=== PATIENT | female | born 2000 | race Two or more races ===

== ENCOUNTER 2024-01-05 12:48 | Inpatient (IN) | payer SELFPAY ==
[~2024-01-05] VITALS: Ht 162.6 cm; Wt 75.7 kg
[2024-01-05 13:29] LABS: Basophils # (auto) 0 10 ^3/uL (0-0.2); Basophils % (auto) 0.3 % (0.0-2.0); Eosinophils # (auto) 0 10 ^3/uL (0-0.8); Eosinophils % (auto) 0.1 % (0.0-7.0); Hematocrit 43.4 % (36.0-46.0); Lymphocytes # (auto) 1.1 10 ^3/uL (0.4-5.4); Lymphocytes % (auto) 7.9 % (10.0-50.0); Mean Corpuscular Hemoglobin 30.9 pg (28.0-32.0); Mean Corpuscular Hgb Conc. 32.4 g/dL (32.0-36.0); Mean Corpuscular Volume 95.4 fL (80.0-100.0); Monocytes # (auto) 0.4 10 ^3/uL (0-1.3); Monocytes % (auto) 2.5 % (0.0-12.0); Neutrophils # (auto) 12.3 10 ^3/uL (1.6-8.6); Neutrophils % (auto) 89.2 % (37.0-80.0); Nucleated Red Blood Cells % 0.1 %; Red Blood Cells 4.54 10^6/uL (4.0-5.20); White Blood Cell 13.8 10^3/uL (4.4-10.8)
[2024-01-05 13:37] LABS: Chloride 105 mmol/L (98-107); Potassium 3.9 mmol/L (3.5-5.1); Sodium 140 mmol/L (136-145)
[2024-01-05 13:38] LABS: Anion Gap 10 (5-15); Carbon Dioxide 25 mmol/L (20-30)
[2024-01-05 13:39] LABS: Calcium 9.9 mg/dL (8.5-10.1)
[2024-01-05] MEDS: ATROPINE SULFATE 0.4 MG/1 ML VIAL IV ONE (13:40)
[2024-01-05] MEDS: SODIUM CHLORIDE 0.9% 2,050 ML IV ONE (13:40)
[2024-01-05] MEDS: ONDANSETRON HCL 4 MG/2 ML VIAL IV ONE ×2 (13:40→16:10)
[2024-01-05 13:43] LABS: Glucose 123 mg/dL (74-106)
[2024-01-05 13:44] LABS: BUN/Creatinine Ratio 8.5 (10.0-20.0); Blood Urea Nitrogen 6 mg/dL (9-23)
[2024-01-05 13:52] VITALS: PULSE 55; RESP 17; O2SAT 94
[2024-01-05 14:21] LABS: Base Excess -0.8 mmol/L (-2.0-2.0)
[2024-01-05 14:35] LABS: Urine Bacteria FEW /hpf (None Seen); Urine Blood 3+ /uL (Negative); Urine Clarity Clear (Clear); Urine Color Yellow (Yellow); Urine Protein, UAD TRACE (Negative); Urine Specific Gravity 1.027 (1.001-1.035); Urine Urobilinogen Normal (Negative); Urine WBC 6 /hpf (0 - 5)
[2024-01-05 14:42] LABS: Acetaminophen < 2.0 UG/ML (10.0-20.0)
[2024-01-05 14:49] LABS: Amphetamine Screen, Urine Neg (NEGATIVE); Barbiturate Scree,Urine Neg (NEGATIVE); Benzodiazephine Screen, Urine Neg (NEGATIVE); Cannabinoid Screen, Urine Pos (NEGATIVE); Cocaine Screen, Urine Neg (NEGATIVE); Opiate Scree,Urine Neg (NEGATIVE); Phencyclidine Screen, Urine Neg (NEGATIVE)
[2024-01-05 14:51] LABS: Salicylate < 3.0 mg/dL (2.8-20.0)
[2024-01-05] MEDS: KETOROLAC TROMETH 30 MG/ML 1ML VIAL IV ONE (16:10)
[2024-01-05] MEDS ORDERED: ALBUTEROL SULF 2.5 MG/0.5ML(0.5%) NEB SOLN NEB PRN (16:15)
[2024-01-05] MEDS ORDERED: MORPHINE SULFATE INJ 2 MG/ml SYRG IV PRN (16:15)
[2024-01-05] MEDS ORDERED: NITROGLYCERIN 0.4 MG SL TAB SL PRN (16:15)
[2024-01-05] MEDS ORDERED: IPRATROPIUM BROM 0.5 MG/2.5ML INH SOL NEB PRN (16:15)
[2024-01-05] MEDS: SODIUM CHLORIDE 0.9% 1,000 ML IV SCH (16:27)
[2024-01-05] MEDS: HYDROcodone-ACET 5/325MG TAB PO PRN (16:45)
[2024-01-05] MEDS: ATROPINE SULF 0.5 MG/5ML SYR IV ONE (17:20)
[2024-01-05] MEDS: MAGNESIUM SULFATE 1GM/100ML 100 ML IV ONE (19:05)
[2024-01-05] MEDS: ONDANSETRON HCL 4 MG/2 ML VIAL IV PRN (19:05)
[2024-01-05 19:09] LABS: Rapid Influenza A Negative (Negative); Rapid Influenza B Negative (Negative)
[2024-01-05 19:36] LABS: Erythrocyte Sedimentation Rate 8 mm/hr (0-20)
[2024-01-05 19:51] VITALS: PULSE 86; RESP 15; O2SAT 98
[2024-01-05] MEDS: MORPHINE SULFATE INJ 2 MG/ml SYRG IV PRN (21:15)
[2024-01-05 21:41] LABS: Hematocrit 39.7 % (36.0-46.0); Hemoglobin 13.1 g/dL (12.2-16.2)
[2024-01-05] MEDS: IBUPROFEN 600 MG TAB PO SCH (22:00)
[2024-01-05] MEDS: PANTOPRAZOLE 40 MG/10 ML VIAL INJ IV ONE (22:18)
[2024-01-05 22:35] VITALS: BP 132/70; PULSE 70; RESP 16; TEMP 98; O2SAT 70
[2024-01-05] MEDS: COLCHICINE 0.6 MG CAP PO ONE (23:37)
[2024-01-06] VITALS (8 sets, daily range): BP systolic 103–131; BP diastolic 59–99; PULSE 45–71; RESP 17–20; TEMP 36.9; O2SAT 98–100
[2024-01-06] MEDS: ATROPINE SULF 1 MG/10ml SYR IV ONE (00:57)
[2024-01-06 06:50] LABS: Calcium 8.2 mg/dL (8.5-10.1); Chloride 107 mmol/L (98-107); Potassium 3.5 mmol/L (3.5-5.1); Sodium 139 mmol/L (136-145)
[2024-01-06 06:51] LABS: Anion Gap 9 (5-15); Carbon Dioxide 23 mmol/L (20-30)
[2024-01-06 06:56] LABS: Glucose 98 mg/dL (74-106)
[2024-01-06 07:00] LABS: BUN/Creatinine Ratio 8.8 (10.0-20.0); Blood Urea Nitrogen < 5 mg/dL (9-23)
[2024-01-06 07:01] LABS: Basophils # (auto) 0.1 10 ^3/uL (0-0.2); Basophils % (auto) 0.4 % (0.0-2.0); Eosinophils # (auto) 0 10 ^3/uL (0-0.8); Eosinophils % (auto) 0.1 % (0.0-7.0); Hematocrit 35.5 % (36.0-46.0); Hemoglobin 11.7 g/dL (12.2-16.2); Lymphocytes # (auto) 1.8 10 ^3/uL (0.4-5.4); Lymphocytes % (auto) 14.8 % (10.0-50.0); Mean Corpuscular Hemoglobin 30.6 pg (28.0-32.0); Mean Corpuscular Hgb Conc. 32.9 g/dL (32.0-36.0); Monocytes # (auto) 0.8 10 ^3/uL (0-1.3); Monocytes % (auto) 6.1 % (0.0-12.0); Neutrophils # (auto) 9.7 10 ^3/uL (1.6-8.6); Neutrophils % (auto) 78.6 % (37.0-80.0); Red Blood Cells 3.82 10^6/uL (4.0-5.20); Red Cell Distribution Width 13.2 % (11.8-14.3); White Blood Cell 12.4 10^3/uL (4.4-10.8)
[2024-01-06] MEDS ORDERED: PANTOPRAZOLE 40 MG/10 ML VIAL INJ IV SCH (10:00)
[2024-01-06] MEDS: COLCHICINE 0.6 MG CAP PO SCH (10:22)
[2024-01-06] MEDS: PANTOPRAZOLE 40 MG TAB PO SCH (10:22)
[2024-01-06] MEDS: cefTRIAXone 1GM/50ML D5W 50 ML IV SCH (10:23)
[2024-01-06 11:06] LABS: CMV IgG Antibody >10.00 U/mL (0.00-0.59); CMV IgM Antibody <30.0 AU/mL (0.0-29.9)
[2024-01-06] MEDS ORDERED: COLC0.6T56 PO (11:17)
[2024-01-06] MEDS ORDERED: IBUP-1456 PO (11:17)
[2024-01-06] MEDS ORDERED: NITR-87 PO (11:17)
[2024-01-06] MEDS ORDERED: ZOFR4T PO (14:38)
== END 2024-01-06 16:00 | disposition home or self-care (01) | DRG 872 ==
LOC: ER 12:48 → TELE 16:17 → TELE-CENTR 23:54
PROVIDERS: ADMIT Nurse Practitioner Acute Care; ATTEND Nurse Practitioner Acute Care
DX: A41.9 Sepsis, unspecified organism (principal); E87.3 Alkalosis; I30.9 Acute pericarditis, unspecified; E83.42 Hypomagnesemia; F12.929 Cannabis use, unspecified with intoxication, unspecified; J45.909 Unspecified asthma, uncomplicated; Z20.822 Contact with and (suspected) exposure to COVID-19; N30.90 Cystitis, unspecified without hematuria
CPT/HCPCS: 36415; 36600; 70450; 71045; 76830; 76856; 80048; 80307; 80320; 80329; 81001; 81025; 82010; 82805; 83690; 83735; 84484; 84702; 85014; 85018; 85025; 85379; 85652; 86141; 86644; 86645; 86658; 87804; 93005; 93306; 94640; 96361; 96365; 96375; 96376; C9113; G0378; J0461; J1885; J2405